=== PATIENT | male | born 1970 | race Caucasian/White ===

== ENCOUNTER → 2017-07-22 | Outpatient (REF) | payer OTHER ==
[2017-07-22 12:20] LABS: CHOLESTEROL LEVEL 107 MG/DL (<200); HDL CHOLESTEROL 50 MG/DL (>40); NON-HDL-C 57 MG/DL; TRIGLYCERIDES LEVEL 75 MG/DL (<150)
[2017-07-22 12:25] LABS: AMORPHOUS SEDIMENT LARGE (NEGATIVE); APPEARANCE, URINE TURBID (CLEAR); BACTERIA, URINE AUTO NEGATIVE (NEGATIVE); BILIRUBIN, URINE AUTO NEGATIVE (NEGATIVE); BLOOD, URINE BLOOD NEGATIVE (NEGATIVE); COLOR, URINE YELLOW (YELLOW); GLUCOSE, URINE (UA) AUTO NEGATIVE (NEGATIVE); KETONE, URINE AUTO NEGATIVE (NEGATIVE); LEUKOCYTE ESTERASE, URINE AUTO NEGATIVE (NEGATIVE); NITRITE, URINE AUTO NEGATIVE (NEGATIVE); PROTEIN, URINE AUTO NEGATIVE (NEGATIVE); RBC, URINE AUTO 0 /HPF (0-3); SPECIFIC GRAVITY URINE AUTO 1.024 (1.002-1.035); SQUAMOUS EPITHELIAL CELL UR AU 0 /HPF (0-6); UROBILINOGEN, URINE AUTO 0.2 mg/dL (0.0-2.0); WBC, URINE AUTO 0 /HPF (0-3)
== END ==
LOC: M LABDRAWC 11:28
DX: R07.89 Other chest pain (principal); Z82.41 Family history of sudden cardiac death; G47.39 Other sleep apnea
CPT/HCPCS: 80061

== ENCOUNTER 2018-11-07 20:30 | Emergency (ER) | payer OTHER ==
[2018-11-07] MEDS ORDERED: OMEP-218 PO (20:54)
[2018-11-07] MEDS ORDERED: BUSP15TA47 PO (20:54)
[2018-11-07] MEDS ORDERED: LOSA50TA88 PO (20:54)
[2018-11-07] MEDS ORDERED: NITR0.4S14 SL (20:54)
[2018-11-07] MEDS ORDERED: BISO10TA3 PO (20:54)
[2018-11-07] MEDS ORDERED: ATOR1TAB21 PO (20:54)
[2018-11-07] MEDS ORDERED: ASPI81TA85 PO (20:55)
[2018-11-07 21:15] LABS: BASO # 0.1 10^3/uL (0.0-0.2); BASO % 0.7 % (0.0-1.0); EOS # 0.1 10^3/uL (0.0-0.50); EOS % 0.8 % (0.0-3.0); HEMATOCRIT 43.2 % (42.0-52.0); HEMOGLOBIN 14.9 g/dl (13.5-17.5); LYMPH # 1.9 10^3/uL (1.5-4.5); LYMPH % 26.2 % (24.0-44.0); MEAN CORPUSCULAR HGB CONC 34.5 g/dl (32.0-36.5); MEAN CORPUSCULAR VOLUME 95.6 fl (80.0-96.0); MONO # 1.1 10^3/uL (0.0-0.8); MONO % 15.9 % (0.0-5.0); NEUTROPHILS % 55.8 % (36.0-66.0); PLATELET COUNT, AUTOMATED 238 10^3/uL (150-450); RED BLOOD COUNT 4.52 10^6/uL (4.30-6.10); WHITE BLOOD COUNT 7.1 10^3/uL (4.0-10.0)
[2018-11-07 21:46] LABS: BLOOD UREA NITROGEN 23 MG/DL (7-18); CALCIUM LEVEL 8.8 MG/DL (8.5-10.1); CARBON DIOXIDE LEVEL 26 MEQ/L (21-32); CHLORIDE LEVEL 109 MEQ/L (98-107); CK-MB VALUE MASS 4.4 NG/ML (<3.6); CPK CREATINE PHOSPHOKINASE 224 U/L (39-308); CREATININE FOR GFR 1.01 MG/DL (0.70-1.30); GLOMERULAR FILTRATION RATE > 60.0 (>56); GLUCOSE, FASTING 97 MG/DL (70-100); MB/CK RELATIVE INDEX 1.96 (< OR =4); POTASSIUM SERUM 4.2 MEQ/L (3.5-5.1); SODIUM LEVEL 142 MEQ/L (136-145); TROPONIN I < 0.02 NG/ML (< 0.10)
[2018-11-07 22:15] VITALS: BP 130/60
[2018-11-07 22:18] LABS: INR 0.98; PROTHROMBIN TIME 13.1 SECONDS (12.1-14.4)
[2018-11-07 22:21] LABS: FREE THYROXINE INDEX 1.6 % (1.4-3.8); MAGNESIUM LEVEL 2.1 MG/DL (1.8-2.4); T UPTAKE 35 % (33-40); THYROXINE (T4) 4.6 UG/DL (4.5-12.0)
--- NOTE | 2018-11-08 08:17 | ECGEPIP ---
[facility] - ED Test Date: 2018-11-07 Pat Name: DANIEL FERRO Department: Room: - Gender: Male Director Operations: : 1970 Requested By: SUNIL AGOSTO Order Number: [id number] Reading MD: Sixto Martinez Measurements Intervals [place] Rate: 78 P: 45 ID: [id number] QRS: QRSD: 100 T: 14 QT: 359 QTc: 410 Interpretive Statements SINUS RHYTHM MINIMAL VOLTAGE CRITERIA FOR LVH, CONSIDER NORMAL VARIANT NO PRIORS FOR COMPARISON Electronically Signed on 11-08-2018 8:16:48 EDT by Sixto Martinez
--- NOTE | 2018-11-08 08:45 | REP ---
CHEST, SINGLE VIEW: Single view of the chest is performed and compared to prior study of 07/11/2010. There is no acute infiltrate or pulmonary edema. Heart is not enlarged. Mediastinal silhouette is unremarkable and unchanged. IMPRESSION: No acute cardiopulmonary disease. Electronically Signed by Marcel Lockwood MD 11/08/2018 12:44 P
== END 2018-11-07 23:09 | disposition home or self-care (01) ==
LOC: M ED 20:30
DX: I48.91 Unspecified atrial fibrillation (principal); I10 Essential (primary) hypertension; Z79.899 Other long term (current) drug therapy; Z79.82 Long term (current) use of aspirin

== ENCOUNTER → 2019-07-27 | Outpatient (REF) | payer MEDICAID, OTHER ==
[~2019-07-27] MED LIST: ASPI81TA85 PO; ATOR1TAB21 PO; BISO10TA4 PO; BUSP15TA47 PO; LOSA50TA88 PO; NITR0.4S14 SL; OMEP-218 PO
[2019-07-27 13:58] LABS: BASO # 0.1 10^3/uL (0.0-0.2); BASO % 0.8 % (0.0-1.0); EOS # 0.1 10^3/uL (0.0-0.5); EOS % 1.5 % (0.0-3.0); LYMPH # 2.2 10^3/uL (1.5-5.0); MEAN CORPUSCULAR HGB CONC 33.3 g/dl (32.0-36.5); MONO # 0.8 10^3/uL (0.0-0.8); MONO % 12.5 % (0.0-5.0); NEUTROPHILS % 48.5 % (36.0-66.0); PLATELET COUNT, AUTOMATED 271 10^3/uL (150-450); WHITE BLOOD COUNT 6.1 10^3/uL (4.0-10.0)
[2019-07-27 14:06] LABS: ALBUMIN 3.9 GM/DL (3.2-5.2); ALT/SGPT 52 U/L (12-78); BILIRUBIN,TOTAL 1.2 MG/DL (0.2-1.0); BLOOD UREA NITROGEN 16 MG/DL (7-18); CALCIUM LEVEL 8.9 MG/DL (8.5-10.1); CARBON DIOXIDE LEVEL 30 MEQ/L (21-32); CHLORIDE LEVEL 105 MEQ/L (98-107); CHOLESTEROL LEVEL 149 MG/DL (<200); CHOLESTEROL RISK RATIO 2.811 (<5); GLOMERULAR FILTRATION RATE > 60.0 (>56); GLUCOSE, FASTING 92 MG/DL (70-100); HDL CHOLESTEROL 53 MG/DL (>40); LDL CHOLESTEROL 60 MG/DL (<100); NON-HDL-C 96 MG/DL; POTASSIUM SERUM 4.3 MEQ/L (3.5-5.1); PROSTATIC SPECIFIC AG MONITOR 1.31 NG/ML (< 4.00); SODIUM LEVEL 139 MEQ/L (136-145); TRIGLYCERIDES LEVEL 182 MG/DL (<150)
== END ==
LOC: M LAB REF 13:33 → M LABDRAWC 13:33
PROVIDERS: ATTEND Family Medicine
DX: Z00.00 Encounter for general adult medical examination without abnormal findings (principal); Z68.41 Body mass index [BMI] 40.0-44.9, adult; I48.0 Paroxysmal atrial fibrillation; E78.49 Other hyperlipidemia

== ENCOUNTER → 2020-01-05 | Outpatient (REF) | payer OTHER ==
[~2020-01-05] MED LIST changes: -ASPI81TA85 PO; +ASPI81TA86 PO
[2020-02-03 03:20] LABS: BASO # 0.1 10^3/uL (0.0-0.2); BASO % 0.8 % (0.0-1.0); EOS # 0.1 10^3/uL (0.0-0.5); EOS % 1.4 % (0.0-3.0); HEMOGLOBIN 14.8 g/dl (13.5-17.5); LYMPH # 2.1 10^3/uL (1.5-5.0); LYMPH % 32.6 % (24.0-44.0); MEAN CORPUSCULAR HEMOGLOBIN 32.3 pg (27.0-33.0); MEAN CORPUSCULAR HGB CONC 32.9 g/dl (32.0-36.5); MEAN CORPUSCULAR VOLUME 98.3 fl (80.0-96.0); MONO # 0.8 10^3/uL (0.0-0.8); MONO % 12.3 % (0.0-5.0); NEUTROPHILS # 3.4 10^3/uL (1.5-8.5); NEUTROPHILS % 52.3 % (36.0-66.0); PLATELET COUNT, AUTOMATED 244 10^3/uL (150-450); RED BLOOD COUNT 4.58 10^6/uL (4.30-6.10); WHITE BLOOD COUNT 6.4 10^3/uL (4.0-10.0)
[2020-02-19 22:30] LABS: BLOOD UREA NITROGEN 17 MG/DL (7-18); CARBON DIOXIDE LEVEL 29 MEQ/L (21-32); CHLORIDE LEVEL 110 MEQ/L (98-107); CREATININE FOR GFR 0.95 MG/DL (0.70-1.30); FREE T4 0.85 NG/DL (0.76-1.46); GLOMERULAR FILTRATION RATE > 60.0 (>56); GLUCOSE, FASTING 107 MG/DL (70-100); POTASSIUM SERUM 4.4 MEQ/L (3.5-5.1); SODIUM LEVEL 144 MEQ/L (136-145); TOTAL T3 103.8 NG/DL (60.0-181.0)
== END ==
LOC: M LABDRAWC 08:20
PROVIDERS: ATTEND Internal Medicine Cardiovascular Disease
DX: I48.0 Paroxysmal atrial fibrillation (principal)

== ENCOUNTER → 2021-04-11 | Outpatient (REF) | payer OTHER ==
[2021-04-11 16:14] LABS: BASO # 0.1 10^3/uL (0.0-0.2); BASO % 0.7 % (0.0-1.0); EOS # 0.1 10^3/uL (0.0-0.5); EOS % 0.8 % (0.0-3.0); HEMATOCRIT 46.2 % (42.0-52.0); HEMOGLOBIN 15.4 g/dl (13.5-17.5); LYMPH # 2.5 10^3/uL (1.5-5.0); LYMPH % 28.4 % (24.0-44.0); MEAN CORPUSCULAR HEMOGLOBIN 32.6 pg (27.0-33.0); MEAN CORPUSCULAR HGB CONC 33.3 g/dl (32.0-36.5); MEAN CORPUSCULAR VOLUME 97.9 fl (80.0-96.0); MONO # 1.1 10^3/uL (0.0-0.8); MONO % 11.9 % (2.0-8.0); NEUTROPHILS % 57.1 % (36.0-66.0); PLATELET COUNT, AUTOMATED 271 10^3/uL (150-450); RED BLOOD COUNT 4.72 10^6/uL (4.30-6.10); WHITE BLOOD COUNT 8.8 10^3/uL (4.0-10.0)
[2021-04-11 16:55] LABS: ALBUMIN 3.7 GM/DL (3.2-5.2); ALT/SGPT 92 U/L (12-78); BLOOD UREA NITROGEN 16 MG/DL (7-18); CALCIUM LEVEL 9.2 MG/DL (8.5-10.1); CARBON DIOXIDE LEVEL 29 MEQ/L (21-32); CHLORIDE LEVEL 105 MEQ/L (98-107); CHOLESTEROL LEVEL 152 MG/DL (<200); CHOLESTEROL RISK RATIO 2.666 (<5); CREATININE FOR GFR 0.95 MG/DL (0.70-1.30); GLOMERULAR FILTRATION RATE > 60.0 (>56); GLUCOSE, FASTING 90 MG/DL (70-100); HDL CHOLESTEROL 57 MG/DL (>40); LDL CHOLESTEROL 69 MG/DL (<100); NON-HDL-C 95 MG/DL; POTASSIUM SERUM 4.3 MEQ/L (3.5-5.1); SODIUM LEVEL 140 MEQ/L (136-145); TOTAL PROTEIN 7.3 GM/DL (6.4-8.2); TRIGLYCERIDES LEVEL 130 MG/DL (<150)
== END ==
LOC: M LABDRAWC 15:41
PROVIDERS: ATTEND Family Medicine
DX: Z68.41 Body mass index [BMI] 40.0-44.9, adult (principal); I48.0 Paroxysmal atrial fibrillation; E78.49 Other hyperlipidemia; Z00.00 Encounter for general adult medical examination without abnormal findings; I10 Essential (primary) hypertension

== ENCOUNTER 2022-02-01 11:29 | Emergency (ER) | payer OTHER ==
[~2022-02-01] VITALS: Ht 190.5 cm; Wt 157.0 kg
[~2022-02-01 11:29] MED LIST changes: -BISO10TA4 PO; +BISO1TAB19 PO; +LOSA50TA28 PO; -LOSA50TA88 PO; +OMEP-173 PO; -OMEP-218 PO
[2022-02-01] MEDS ORDERED: ELIQ5TAB (11:39)
[2022-02-01] MEDS ORDERED: FLEC25TA (11:39)
[2022-02-01] MEDS ORDERED: ISOVUE-370 76% 100ML VIAL As Ordered ONE (13:32)
[2022-02-01 13:40] LABS: BASO % 0.6 % (0.0-1.0); EOS # 0.1 10^3/uL (0.0-0.5); EOS % 0.9 % (0.0-3.0); HEMATOCRIT 45.6 % (42.0-52.0); HEMOGLOBIN 15.2 g/dl (13.5-17.5); LYMPH # 1.5 10^3/uL (1.5-5.0); MEAN CORPUSCULAR HEMOGLOBIN 32.6 pg (27.0-33.0); MEAN CORPUSCULAR HGB CONC 33.3 g/dl (32.0-36.5); MEAN CORPUSCULAR VOLUME 97.9 fl (80.0-96.0); MONO # 0.8 10^3/uL (0.0-0.8); MONO % 11.6 % (2.0-8.0); NEUTROPHILS # 4.5 10^3/uL (1.5-8.5); NEUTROPHILS % 64.3 % (36.0-66.0); PLATELET COUNT, AUTOMATED 245 10^3/uL (150-450); RED BLOOD COUNT 4.66 10^6/uL (4.30-6.10)
[2022-02-01 14:25] LABS: ERYTHROCYTE SEDIMENTATION RATE 2 mm/hr (0-20)
[2022-02-01] MEDS ORDERED: ACETAMINOPHEN 500 MG TAB PO ONE (14:25)
[2022-02-01] MEDS ORDERED: diphenhydrAMINE 50MG/ML VIAL (J1200) IV ONE (14:25)
[2022-02-01] MEDS ORDERED: NS 1,000 ML IV ONE (14:25)
[2022-02-01] MEDS ORDERED: METOCLOPRAMIDE INJ 10MG/2ML VIAL (J2765 PER 1) IV ONE (14:25)
[2022-02-01] MEDS ORDERED: KETOROLAC 30 MG/ML 1ML VIAL IV ONE (15:00)
[2022-02-01] MEDS ORDERED: REGL10TA6 PO (15:37)
[2022-02-01] MEDS ORDERED: AZEL1SPR3 NARES (15:38)
[2022-02-01 16:00] VITALS: BP 147/84
== END 2022-02-01 16:29 | disposition home or self-care (01) ==
LOC: M ED 11:29
DX: R51.9 Headache, unspecified (principal); I10 Essential (primary) hypertension; Z79.01 Long term (current) use of anticoagulants; Z79.899 Other long term (current) drug therapy
CPT/HCPCS: 70450; 70496; 70498; 80047; 85025; 85652; 96361; 96374; 96375; 99284; J1200; J1885; J2765; Q9967

== ENCOUNTER → 2022-05-08 | Outpatient (CLI) | payer OTHER ==
[~2022-05-08] MED LIST changes: +AZEL1SPR3 NARES; +ELIQ5TAB; +FLEC25TA; +ISOVUE-300 61% 50ML VIAL As Ordered ONE; +LIDOCAINE 1% MDV 20ML VIAL As Ordered ONE; +REGL10TA6 PO; +methylPREDNISolone SUSP 40MG/ML 1ML VIAL (DEPO MEDROL) As Ordered ONE
== END ==
LOC: M RAD 13:49
PROVIDERS: ATTEND Physician Assistant
DX: M16.12 Unilateral primary osteoarthritis, left hip (principal)
CPT/HCPCS: 20610; 76000; J1030

== ENCOUNTER → 2022-09-14 | Outpatient (REF) | payer OTHER ==
[~2022-09-14] MED LIST changes: -ISOVUE-300 61% 50ML VIAL As Ordered ONE; -LIDOCAINE 1% MDV 20ML VIAL As Ordered ONE; -methylPREDNISolone SUSP 40MG/ML 1ML VIAL (DEPO MEDROL) As Ordered ONE
[2022-09-14 12:13] LABS: ALBUMIN 3.6 G/DL (3.2-5.2)
[2022-09-14 12:20] LABS: BASO % 0.6 % (0.0-1.0); EOS # 0.1 10^3/uL (0.0-0.5); EOS % 1.6 % (0.0-3.0); HEMATOCRIT 44.1 % (42.0-52.0); HEMOGLOBIN 14.5 g/dl (13.5-17.5); LYMPH # 1.8 10^3/uL (1.5-5.0); LYMPH % 35.2 % (24.0-44.0); MEAN CORPUSCULAR HEMOGLOBIN 32.4 pg (27.0-33.0); MEAN CORPUSCULAR HGB CONC 32.9 g/dl (32.0-36.5); MEAN CORPUSCULAR VOLUME 98.7 fl (80.0-96.0); MONO # 0.6 10^3/uL (0.0-0.8); MONO % 12.5 % (2.0-8.0); NEUTROPHILS # 2.5 10^3/uL (1.5-8.5); NEUTROPHILS % 49.7 % (36.0-66.0); PERCENT SATURATION 41.3 % (19.7-50.0); PLATELET COUNT, AUTOMATED 241 10^3/uL (150-450); RED BLOOD COUNT 4.47 10^6/uL (4.30-6.10); WHITE BLOOD COUNT 5.1 10^3/uL (4.0-10.0)
[2022-09-14 12:22] LABS: FERRITIN 203.7 NG/ML (10.5-307.3); THYROID STIMULATING HORMONE 1.662 uIU/ML (0.55-4.78)
== END ==
LOC: M LABDRAWC 11:13
PROVIDERS: ATTEND Orthopaedic Surgery
DX: M16.12 Unilateral primary osteoarthritis, left hip (principal); M25.552 Pain in left hip; Z01.818 Encounter for other preprocedural examination; R53.1 Weakness

== ENCOUNTER → 2022-09-22 | Outpatient (REF) | payer OTHER ==
[2022-09-22 17:31] LABS: INR 1.16; PARTIAL THROMBOPLASTIN TIME 30.4 SECONDS (24.8-34.2)
[2022-09-22 17:35] LABS: BLOOD UREA NITROGEN 16 MG/DL (9-23); CALCIUM LEVEL 8.9 MG/DL (8.5-10.1); CARBON DIOXIDE LEVEL 27 MMOL/L (20-31); CHLORIDE LEVEL 108 MMOL/L (98-107); CREATININE FOR GFR 1.04 MG/DL (0.70-1.30); GLOMERULAR FILTRATION RATE > 60.0 (>56); GLUCOSE, FASTING 92 MG/DL (60-100); POTASSIUM SERUM 4.2 MMOL/L (3.5-5.1); SODIUM LEVEL 143 MMOL/L (136-145)
== END ==
LOC: M LABDRAWC 16:42
PROVIDERS: ATTEND Family Medicine
DX: M13.852 Other specified arthritis, left hip (principal); K21.9 Gastro-esophageal reflux disease without esophagitis; I48.0 Paroxysmal atrial fibrillation; G47.39 Other sleep apnea; E66.01 Morbid (severe) obesity due to excess calories; R94.31 Abnormal electrocardiogram [ECG] [EKG]; E78.49 Other hyperlipidemia; R00.1 Bradycardia, unspecified; I10 Essential (primary) hypertension

== ENCOUNTER → 2023-09-02 | Outpatient (REF) | payer OTHER ==
[2023-09-02 12:49] LABS: BASO % 0.6 % (0.0-1.0); EOS # 0.1 10^3/uL (0.0-0.5); EOS % 1.4 % (0.0-3.0); HEMATOCRIT 45.3 % (42.0-52.0); HEMOGLOBIN 15.1 g/dl (13.5-17.5); LYMPH # 1.7 10^3/uL (1.5-5.0); LYMPH % 33.8 % (24.0-44.0); MEAN CORPUSCULAR HEMOGLOBIN 32.9 pg (27.0-33.0); MEAN CORPUSCULAR HGB CONC 33.3 g/dl (32.0-36.5); MEAN CORPUSCULAR VOLUME 98.7 fl (80.0-96.0); MONO # 0.8 10^3/uL (0.0-0.8); MONO % 16.1 % (2.0-8.0); NEUTROPHILS # 2.4 10^3/uL (1.5-8.5); NEUTROPHILS % 47.5 % (36.0-66.0); PLATELET COUNT, AUTOMATED 255 10^3/uL (150-450); RED BLOOD COUNT 4.59 10^6/uL (4.30-6.10); WHITE BLOOD COUNT 5.1 10^3/uL (4.0-10.0)
[2023-09-02 13:08] LABS: HEMOGLOBIN A1c 5.4 % (4.0-6.0)
[2023-09-02 13:15] LABS: ALBUMIN 3.4 G/DL (3.2-5.2); ALKALINE PHOSPHATASE 99 U/L (46-116); ALT/SGPT 34 U/L (7.0-40); AST/SGOT 18 U/L (<34); BILIRUBIN,TOTAL 0.6 MG/DL (0.3-1.2); BLOOD UREA NITROGEN 17 MG/DL (9-23); CALCIUM LEVEL 9.2 MG/DL (8.5-10.1); CARBON DIOXIDE LEVEL 30 MMOL/L (20-31); CHLORIDE LEVEL 107 MMOL/L (98-107); CHOLESTEROL LEVEL 110 MG/DL (<200); CREATININE FOR GFR 0.85 MG/DL (0.70-1.30); GLOMERULAR FILTRATION RATE > 60.0 (>56); GLUCOSE, FASTING 113 MG/DL (60-100); LDL CHOLESTEROL 40.6 MG/DL (<100); POTASSIUM SERUM 4.5 MMOL/L (3.5-5.1); SODIUM LEVEL 138 MMOL/L (136-145); TOTAL PROTEIN 6.3 G/DL (5.7-8.2); TRIGLYCERIDES LEVEL 72 MG/DL (<150)
== END ==
LOC: M LABDRAWC 11:46
PROVIDERS: ATTEND Family Medicine
DX: Z68.41 Body mass index [BMI] 40.0-44.9, adult (principal); K21.9 Gastro-esophageal reflux disease without esophagitis; E66.01 Morbid (severe) obesity due to excess calories; E78.49 Other hyperlipidemia; Z00.00 Encounter for general adult medical examination without abnormal findings

== ENCOUNTER → 2024-06-22 | Outpatient (REF) | payer OTHER ==
[2024-06-22 12:36] LABS: BASO % 0.3 % (0.0-1.0); EOS # 0.1 10^3/uL (0.0-0.5); EOS % 1.2 % (0.0-3.0); HEMATOCRIT 45.5 % (42.0-52.0); HEMOGLOBIN 15.2 g/dl (13.5-17.5); LYMPH # 1.8 10^3/uL (1.5-5.0); LYMPH % 30.4 % (24.0-44.0); MEAN CORPUSCULAR HEMOGLOBIN 32.8 pg (27.0-33.0); MEAN CORPUSCULAR HGB CONC 33.4 g/dl (32.0-36.5); MEAN CORPUSCULAR VOLUME 98.1 fl (80.0-96.0); MONO # 0.8 10^3/uL (0.0-0.8); MONO % 14.5 % (2.0-8.0); NEUTROPHILS # 3.1 10^3/uL (1.5-8.5); NEUTROPHILS % 52.9 % (36.0-66.0); PLATELET COUNT, AUTOMATED 225 10^3/uL (150-450); RED BLOOD COUNT 4.64 10^6/uL (4.30-6.10); WHITE BLOOD COUNT 5.8 10^3/uL (4.0-10.0)
[2024-06-22 12:40] LABS: PSA SCREENING 1.74 NG/ML (< 4.00)
[2024-06-22 12:41] LABS: ALBUMIN 3.6 G/DL (3.2-5.2); ALKALINE PHOSPHATASE 76 U/L (40-129); ALT/SGPT 54 U/L (7.0-40); AST/SGOT 39 U/L (<34); BILIRUBIN,TOTAL 1.1 MG/DL (0.3-1.2); BLOOD UREA NITROGEN 21 MG/DL (9-23); CALCIUM LEVEL 9.2 MG/DL (8.5-10.1); CARBON DIOXIDE LEVEL 29 MMOL/L (20-31); CHLORIDE LEVEL 109 MMOL/L (98-107); CHOLESTEROL LEVEL 126 MG/DL (<200); CHOLESTEROL RISK RATIO 2.61 (<5); CREATININE FOR GFR 0.84 MG/DL (0.70-1.30); GLOMERULAR FILTRATION RATE > 60.0 (>56); GLUCOSE, FASTING 105 MG/DL (60-100); HDL CHOLESTEROL 48.1 MG/DL (>40); LDL CHOLESTEROL 60.1 MG/DL (<100); NON-HDL-C 77.9 MG/DL; POTASSIUM SERUM 4.4 MMOL/L (3.5-5.1); SODIUM LEVEL 143 MMOL/L (136-145); TOTAL PROTEIN 6.6 G/DL (5.7-8.2); TRIGLYCERIDES LEVEL 89 MG/DL (<150)
== END ==
LOC: M LABDRAWC 11:47
PROVIDERS: ATTEND Family Medicine
DX: K57.90 Diverticulosis of intestine, part unspecified, without perforation or abscess without bleeding (principal); Z68.41 Body mass index [BMI] 40.0-44.9, adult; I10 Essential (primary) hypertension; I48.0 Paroxysmal atrial fibrillation; Z00.00 Encounter for general adult medical examination without abnormal findings; E78.49 Other hyperlipidemia